=== PATIENT | male | born 1975 | race Caucasian/White ===

== ENCOUNTER 2017-04-13 09:08 | Emergency (ER) | payer MEDICAID ==
[2017-04-13] MEDS: EPINEPHrine 1 MG INJ IM ×3 (10:16→13:26)
[2017-04-13] MEDS: METHYLPREDNISOLONE 125 MG INJ IV (10:20)
[2017-04-13] MEDS: DIPHENHYDRAMINE 50 MG INJ IV ×2 (10:20→13:26)
[2017-04-13] MEDS: FAMOTIDINE 20 MG INJ IV (10:20)
[2017-04-13] MEDS: SOD CHLORIDE 0.9% 1,000 ML IV ×2 (10:23→11:22)
[2017-04-13] MEDS: IPRATROPIUM (NEB) 0.5 MG/2.5 ML AMP NEB (10:36)
[2017-04-13] MEDS: ALBUTEROL 0.083% (NEB) 2.5 MG/3 ML AMP NEB (10:36)
[2017-04-13 11:30] LABS: ADD MAN DIFF? NO
[2017-04-13 11:32] LABS: WHITE BLOOD COUNT 7.3 10^3/ul (4.8-10.8)
[2017-04-13 11:32] LABS: BASOPHILS % 0.4 % (0.0-2.0); EOSINOPHILS # 0.5 10^3/ul (0.0-0.5); EOSINOPHILS % 6.3 % (0.0-7.0); HEMOGLOBIN 16.2 g/dl (14.0-18.0); LYMPHOCYTES # 1.3 10^3/ul (0.8-2.9); LYMPHOCYTES % 18.5 % (15.0-51.0); MEAN CORPUSCULAR HEMOGLOBIN 29.9 pg (29.0-33.0); MEAN CORPUSCULAR HGB CONC 35.2 g/dl (32.0-37.0); MEAN CORPUSCULAR VOLUME 84.9 fl (82.0-101.0); MEAN PLATELET VOLUME 9.9 fl (7.4-10.4); MONOCYTE # 0.6 10^3/ul (0.3-0.9); MONOCYTES % 7.6 % (0.0-11.0); NEUTROPHIL # 4.8 10^3/ul (1.6-7.5); NEUTROPHILS % 66.8 % (39.0-77.0); PLATELET COUNT 196 10^3/UL (140-415); RED BLOOD COUNT 5.42 10^6/ul (4.70-6.10); RED CELL DISTRIBUTION WIDTH 13.8 % (11.5-14.5)
[2017-04-13 11:38] LABS: ADD UMIC YES; UR ASCORBIC ACID NEGATIVE (NEGATIVE); UR BILIRUBIN (Dip) NEGATIVE (NEGATIVE); UR BLOOD (Dip) NEGATIVE (NEGATIVE); UR CLARITY CLEAR (CLEAR); UR COLOR YELLOW (YELLOW); UR GLUCOSE (Dip) NEGATIVE (NEGATIVE); UR KETONES (Dip) NEGATIVE (NEGATIVE); UR LEUKOCYTE ESTERASE (Dip) NEGATIVE Leu/ul (NEGATIVE); UR NITRITE (Dip) NEGATIVE (NEGATIVE); UR RBC 1 /HPF (0-5); UR SPECIFIC GRAVITY (Dip) 1.014 (1.003-1.030); UR TOTAL PROTEIN (Dip) 1+ mg/dl (NEGATIVE); UR UROBILINOGEN (Dip) NEGATIVE (NEGATIVE); UR WBC 0 /HPF (0-5)
[2017-04-13 12:10] LABS: B-TYPE NATRIURETIC PEPTIDE 69 PG/ML (0-125)
[2017-04-13 12:26] LABS: TROPONIN-I < 0.012 ng/ml (0.00-0.12)
== END 2017-04-13 14:19 | disposition home or self-care (01) ==
LOC: E/R 09:08
DX: L50.0 Allergic urticaria (principal); R07.9 Chest pain, unspecified; R06.02 Shortness of breath; Z85.830 Personal history of malignant neoplasm of bone; Z87.891 Personal history of nicotine dependence
CPT/HCPCS: 36415; 71045; 81001; 83880; 84484; 85025; 93005; 94664; 96372; 96374; 96375; 96376; 99285-25

== ENCOUNTER 2017-04-15 09:18 | Emergency (ER) | payer MEDICAID | END 2017-04-15 11:00 | disposition home or self-care (01) | LOC: FTE 09:18 → E/R 11:00 | DX: M79.81 Nontraumatic hematoma of soft tissue (principal); C41.9 Malignant neoplasm of bone and articular cartilage, unspecified | CPT/HCPCS: 99282; Z7502 ==

== ENCOUNTER 2017-05-27 09:39 | Emergency (ER) | payer MEDICAID | END 2017-05-27 12:25 | disposition home or self-care (01) | LOC: FTE 09:39 | DX: M25.561 Pain in right knee (principal); F17.210 Nicotine dependence, cigarettes, uncomplicated; Z85.830 Personal history of malignant neoplasm of bone | CPT/HCPCS: 29505; 73562; 99283-25 ==

== ENCOUNTER → 2017-07-01 | Outpatient (CLI) | payer BC | END | disposition home or self-care (01) | LOC: HKI 13:20 | DX: M25.561 Pain in right knee (principal); Z96.651 Presence of right artificial knee joint | CPT/HCPCS: 73564; 73564-RT ==